=== PATIENT | male | born 1965 | race Caucasian/White ===

== ENCOUNTER 2016-12-15 01:03 | Emergency (ER) | payer MEDICARE | END 2016-12-15 03:35 | disposition home or self-care (01) | LOC: D.ER 01:03 | DX: R10.9 Unspecified abdominal pain (principal) ==

== ENCOUNTER 2019-10-18 14:24 | Emergency (ER) | payer MEDICARE, MEDICAID ==
[~2019-10-18] VITALS: Ht 182.9 cm; Wt 69.5 kg
[2019-10-18 14:45] VITALS: Ht 182.9 cm; Wt 69.5 kg
[2019-10-18 18:33] VITALS: BP 132/88
[2019-10-18] MEDS ORDERED: ACETAMINOPHEN500 M1 PO (18:39)
[2019-10-18] MEDS ORDERED: EC-NAPROSYN500 MG PO (18:39)
== END 2019-10-18 18:34 | disposition home or self-care (01) ==
LOC: D.ER 14:24
DX: M25.512 Pain in left shoulder (principal); M79.602 Pain in left arm; W19.XXXA Unspecified fall, initial encounter; Y93.9 Activity, unspecified; Y92.9 Unspecified place or not applicable